=== PATIENT | female | born 1955 | race Caucasian/White ===

== ENCOUNTER 2018-06-27 16:12 | Inpatient (IN) | payer MEDICARE, MEDICAID ==
[~2018-06-27] VITALS: Ht 162.6 cm; Wt 90.7 kg
[2018-06-27 18:43] VITALS: BP 180/82
[2018-06-27] MEDS ORDERED: PLEASE ENTER ALLERGIES MC SCH (19:00)
[2018-06-27] MEDS ORDERED: DULO30CA2 PO (21:01)
[2018-06-27] MEDS ORDERED: DIVA500T4 PO (21:01)
[2018-06-27] MEDS ORDERED: FOLI20CA PO (21:01)
[2018-06-27] MEDS ORDERED: LEVO75TA5 PO (21:01)
[2018-06-27] MEDS ORDERED: CHOL200074 PO (21:01)
[2018-06-27] MEDS ORDERED: OMEP20TA62 PO (21:01)
[2018-06-27] MEDS ORDERED: MAGN400T36 PO (21:01)
[2018-06-27] MEDS ORDERED: METO25TA35 PO (21:01)
[2018-06-27] MEDS ORDERED: MULT-224 PO (21:01)
[2018-06-27] MEDS ORDERED: ZOLP-413 PO (21:01)
[2018-06-27 22:00] VITALS: BP 151/86
[2018-06-27] MEDS ORDERED: ZOLPIDEM 5MG TABLET PO PRN (22:00)
[2018-06-27] MEDS: DIVALPROEX 500 MG TAB.ER.24H PO SCH (22:33)
[2018-06-27] MEDS: DULOXETINE 30 MG CAPSULE.DR PO SCH (22:33)
[2018-06-27] MEDS: OMEPRAZOLE 20 MG CAPSULE.DR PO SCH (22:34)
[2018-06-27] MEDS: METOPROLOL TARTRATE 25 MG TABLET PO SCH (22:34)
[2018-06-28] MEDS ORDERED: LEVOTHYROXINE 175 MCG TABLET ONE (05:25)
[2018-06-28] MEDS: LEVOTHYROXINE 75 MCG TABLET PO SCH (06:22)
[2018-06-28 07:26] VITALS: BP 131/76
[2018-06-28 07:58] LABS: CHOL/HDL RATIO 4.5; LDL/HDL RATIO 2.5 (0.5-3.0); THYROID STIMULATING HORMONE 3.74 mIU/L (0.358-3.740)
[2018-06-28] MEDS: MULTIVITAMIN 1 TABLET PO SCH (08:51)
[2018-06-28] MEDS: DULOXETINE 30 MG CAPSULE.DR PO SCH ×2 (08:51→21:06)
[2018-06-28] MEDS: CHOLECALCIFEROL 1,000 UNIT TABLET PO SCH (08:51)
[2018-06-28] MEDS: METOPROLOL TARTRATE 25 MG TABLET PO SCH ×2 (08:51→21:08)
[2018-06-28] MEDS: DIVALPROEX 500 MG TAB.ER.24H PO SCH ×2 (08:51→21:07)
[2018-06-28] MEDS: FOLIC ACID 1 MG TABLET PO SCH ×2 (11:02→21:07)
[2018-06-28] MEDS: MAGNESIUM OXIDE 400 MG TABLET PO SCH (11:03)
[2018-06-28 19:59] VITALS: BP 159/88
[2018-06-28] MEDS: OMEPRAZOLE 20 MG CAPSULE.DR PO SCH (21:07)
[2018-06-28] MEDS: ZOLPIDEM 5MG TABLET PO PRN (21:08)
[2018-06-28] MEDS: DOCUSATE 100 MG CAPSULE PO PRN (21:12)
[2018-06-28] MEDS ORDERED: hydrALAzine 20 MG/ML, 1ML IV PRN (21:30)
[2018-06-29 04:51] VITALS: BP 135/77
[2018-06-29] MEDS: LEVOTHYROXINE 75 MCG TABLET PO SCH (05:23)
[2018-06-29 08:00] VITALS: BP 127/70
[2018-06-29] MEDS: MAGNESIUM OXIDE 400 MG TABLET PO SCH (09:32)
[2018-06-29] MEDS: CHOLECALCIFEROL 1,000 UNIT TABLET PO SCH (09:33)
[2018-06-29] MEDS: METOPROLOL TARTRATE 25 MG TABLET PO SCH ×2 (09:33→21:08)
[2018-06-29] MEDS: MULTIVITAMIN 1 TABLET PO SCH (09:34)
[2018-06-29] MEDS: DULOXETINE 30 MG CAPSULE.DR PO SCH ×2 (09:34→21:08)
[2018-06-29] MEDS: DIVALPROEX 250 MG TAB.ER.24H PO SCH (09:34)
[2018-06-29] MEDS: FOLIC ACID 1 MG TABLET PO SCH (09:44)
[2018-06-29 15:00] VITALS: BP 158/91
[2018-06-29 19:47] VITALS: BP 112/72
[2018-06-29] MEDS: ZOLPIDEM 5MG TABLET PO PRN (21:08)
[2018-06-29] MEDS: OMEPRAZOLE 20 MG CAPSULE.DR PO SCH (21:08)
[2018-06-29] MEDS: DIVALPROEX 500 MG TAB.ER.24H PO SCH (21:08)
[2018-06-29] MEDS: DOCUSATE 100 MG CAPSULE PO PRN (21:13)
[2018-06-30] MEDS: LEVOTHYROXINE 75 MCG TABLET PO SCH (05:29)
[2018-06-30 08:00] VITALS: BP 119/70
[2018-06-30] MEDS: CHOLECALCIFEROL 1,000 UNIT TABLET PO SCH (08:47)
[2018-06-30] MEDS: MULTIVITAMIN 1 TABLET PO SCH (08:47)
[2018-06-30] MEDS: DIVALPROEX 250 MG TAB.ER.24H PO SCH (08:47)
[2018-06-30] MEDS: METOPROLOL TARTRATE 25 MG TABLET PO SCH ×2 (08:48→20:19)
[2018-06-30] MEDS: FOLIC ACID 1 MG TABLET PO SCH (08:48)
[2018-06-30] MEDS: DULOXETINE 30 MG CAPSULE.DR PO SCH ×2 (08:48→20:19)
[2018-06-30] MEDS: MAGNESIUM OXIDE 400 MG TABLET PO SCH (10:03)
[2018-06-30 13:08] VITALS: BP 153/81
[2018-06-30 19:32] VITALS: BP 117/72
[2018-06-30] MEDS: OMEPRAZOLE 20 MG CAPSULE.DR PO SCH (20:18)
[2018-06-30] MEDS: DIVALPROEX 500 MG TAB.ER.24H PO SCH (20:19)
[2018-06-30] MEDS: DOCUSATE 100 MG CAPSULE PO PRN (20:19)
[2018-06-30] MEDS: ZOLPIDEM 5MG TABLET PO PRN (20:19)
[2018-07-01] MEDS: LEVOTHYROXINE 75 MCG TABLET PO SCH (06:02)
[2018-07-01 07:33] VITALS: BP 131/74
[2018-07-01] MEDS: CHOLECALCIFEROL 1,000 UNIT TABLET PO SCH (08:55)
[2018-07-01] MEDS: MULTIVITAMIN 1 TABLET PO SCH (08:55)
[2018-07-01] MEDS: METOPROLOL TARTRATE 25 MG TABLET PO SCH ×2 (08:55→21:38)
[2018-07-01] MEDS: DIVALPROEX 250 MG TAB.ER.24H PO SCH (08:55)
[2018-07-01] MEDS: DULOXETINE 30 MG CAPSULE.DR PO SCH ×2 (08:56→21:39)
[2018-07-01] MEDS: FOLIC ACID 1 MG TABLET PO SCH (08:56)
[2018-07-01] MEDS: MAGNESIUM OXIDE 400 MG TABLET PO SCH (08:57)
[2018-07-01] MEDS: ACETAMINOPHEN 325 MG TABLET PO PRN ×2 (09:46→17:27)
[2018-07-01 19:54] VITALS: BP 148/78
[2018-07-01] MEDS: OMEPRAZOLE 20 MG CAPSULE.DR PO SCH (21:38)
[2018-07-01] MEDS: ZOLPIDEM 5MG TABLET PO PRN (21:39)
[2018-07-01] MEDS: DIVALPROEX 500 MG TAB.ER.24H PO SCH (21:39)
[2018-07-01] MEDS: DOCUSATE 100 MG CAPSULE PO PRN (21:44)
[2018-07-02] MEDS: ACETAMINOPHEN 325 MG TABLET PO PRN ×3 (00:05→21:55)
[2018-07-02] MEDS: LEVOTHYROXINE 75 MCG TABLET PO SCH (06:20)
[2018-07-02 07:31] VITALS: BP 130/77
[2018-07-02] MEDS: DULOXETINE 30 MG CAPSULE.DR PO SCH ×2 (08:30→21:55)
[2018-07-02] MEDS: METOPROLOL TARTRATE 25 MG TABLET PO SCH ×2 (08:30→21:55)
[2018-07-02] MEDS: DIVALPROEX 250 MG TAB.ER.24H PO SCH (08:30)
[2018-07-02] MEDS: DOCUSATE 100 MG CAPSULE PO PRN ×2 (08:30→21:55)
[2018-07-02] MEDS: MULTIVITAMIN 1 TABLET PO SCH (08:31)
[2018-07-02] MEDS: CHOLECALCIFEROL 1,000 UNIT TABLET PO SCH (08:31)
[2018-07-02] MEDS: MAGNESIUM OXIDE 400 MG TABLET PO SCH (08:31)
[2018-07-02] MEDS: FOLIC ACID 1 MG TABLET PO SCH (08:31)
[2018-07-02] MEDS ORDERED: DIVA500T4 PO (18:08)
[2018-07-02] MEDS ORDERED: DIVA250T PO (18:08)
[2018-07-02 19:31] VITALS: BP 143/82
[2018-07-02] MEDS: DIVALPROEX 500 MG TAB.ER.24H PO SCH (21:55)
[2018-07-02] MEDS: ZOLPIDEM 5MG TABLET PO PRN (21:55)
[2018-07-02] MEDS: OMEPRAZOLE 20 MG CAPSULE.DR PO SCH (21:55)
[2018-07-03] MEDS: LEVOTHYROXINE 75 MCG TABLET PO SCH (05:28)
[2018-07-03] MEDS: ACETAMINOPHEN 325 MG TABLET PO PRN (05:29)
[2018-07-03 07:45] VITALS: BP 136/62
[2018-07-03] MEDS: DIVALPROEX 250 MG TAB.ER.24H PO SCH (08:41)
[2018-07-03] MEDS: MAGNESIUM OXIDE 400 MG TABLET PO SCH (08:41)
[2018-07-03] MEDS: MULTIVITAMIN 1 TABLET PO SCH (08:41)
[2018-07-03] MEDS: FOLIC ACID 1 MG TABLET PO SCH (08:41)
[2018-07-03] MEDS: CHOLECALCIFEROL 1,000 UNIT TABLET PO SCH (08:41)
[2018-07-03] MEDS: DULOXETINE 30 MG CAPSULE.DR PO SCH (08:41)
[2018-07-03] MEDS: METOPROLOL TARTRATE 25 MG TABLET PO SCH (08:41)
== END 2018-07-03 13:10 | disposition home or self-care (01) | DRG 885 ==
LOC: 3E 18:05
PROVIDERS: ADMIT Psychiatry & Neurology Psychosomatic Medicine; ATTEND Psychiatry & Neurology Psychosomatic Medicine
DX: F31.30 Bipolar disorder, current episode depressed, mild or moderate severity, unspecified (principal); R45.851 Suicidal ideations; I10 Essential (primary) hypertension; E03.9 Hypothyroidism, unspecified; E66.9 Obesity, unspecified; G47.00 Insomnia, unspecified; F41.1 Generalized anxiety disorder; G47.30 Sleep apnea, unspecified; K59.00 Constipation, unspecified; R73.03 Prediabetes; K21.9 Gastro-esophageal reflux disease without esophagitis; Z60.2 Problems related to living alone; F60.3 Borderline personality disorder; Z68.34 Body mass index [BMI] 34.0-34.9, adult; Z82.49 Family history of ischemic heart disease and other diseases of the circulatory system; Z83.3 Family history of diabetes mellitus; Z81.8 Family history of other mental and behavioral disorders; Z87.891 Personal history of nicotine dependence; Z88.0 Allergy status to penicillin; Z79.899 Other long term (current) drug therapy; Z88.2 Allergy status to sulfonamides; Z88.8 Allergy status to other drugs, medicaments and biological substances
CPT/HCPCS: 36415; 80061; 82140; 82607; 84439; 84443; 86592; 93005; 92523-GN; G0515-GN